=== PATIENT | male | born 1960 | race Caucasian/White ===

== ENCOUNTER → 2017-11-05 08:05 | Outpatient (CLI) | payer BC, SELFPAY | PROVIDERS: PCP Nurse Practitioner; Visit Provider Anesthesiology | DX: M54.12 Radiculopathy, cervical region (principal) ==

== ENCOUNTER 2018-12-10 17:30 | Outpatient (RCR) | payer BC, SELFPAY | END 2018-12-10 17:35 | disposition home or self-care (01) | LOC: PT 17:30 | DX: Z96.642 Presence of left artificial hip joint (principal) | CPT/HCPCS: 97010; 97014; 97110; 97163; G0283 ==

== ENCOUNTER → 2020-10-16 11:34 | Outpatient (CLI) | payer BC, SELFPAY ==
--- NOTE | 2020-10-16 11:39 | XR_ITS ---
PROCEDURE: XR CHEST 2V CLINICAL HISTORY: PNEUMONIA OF LLL DUE TO INFECTIOUS ORGANSIM COMPARISON: No exams were available for comparison FINDINGS: There is normal heart size. No evidence of CHF. Reticular pattern noted in the upper lobes and may be due to developing pulmonary fibrosis. Chest CT may confirm. There is increased density in the retrocardiac region. This may in part be due to hiatal hernia. Consolidation in the lung base posteriorly is also consideration. There is an ill-defined parenchymal opacity in the left upper lobe at 15 mm possibly due to the pulmonary fibrotic process. There are no previous exams available at this institution for comparison. No acute bony findings. Metallic density noted in the left proximal humerus. IMPRESSION: 1. Increased density in the retrocardiac region which could be due to hiatal hernia and ventricular chamber overlap. There may also be and patchy infiltrate in the left lower lobe posteriorly as seen on the lateral view. 2. Reticular pattern in the upper lung zones suggesting pulmonary fibrosis. 3. 15 mm ill-defined parenchymal opacity in the left upper lobe at the 2nd interspace anteriorly 4. Suggest chest CT with contrast for further evaluation. Dictated by: Aakash Meek MD 10/16/2020 11:56 Akaash Meek MD in [place] 10/16/2020 11:56
== END ==
PROVIDERS: PCP Nurse Practitioner Family; Visit Provider Nurse Practitioner Family
DX: J18.9 Pneumonia, unspecified organism (principal)
CPT/HCPCS: 71046

== ENCOUNTER → 2020-11-02 12:50 | Outpatient (CLI) | payer BC, SELFPAY ==
[2020-11-02 13:35] LABS: Blood Urea Nitrogen 9 mg/dl (9-20); Estimated Glomerular Filt Rate 98 ml/min (>60); GFR (African American) 119 ML/MIN (>60)
== END ==
PROVIDERS: Visit Provider Nurse Practitioner Family
DX: R93.89 Abnormal findings on diagnostic imaging of other specified body structures (principal)
CPT/HCPCS: 36415; 82565; 84520

== ENCOUNTER → 2020-11-03 13:21 | Outpatient (CLI) | payer BC, SELFPAY ==
--- NOTE | 2020-11-03 13:26 | CT_ITS ---
PROCEDURE: CT CHEST WO/W CON CLINCAL INDICATION: ABN CXR Follow up pneumonia COMPARISON: CR XR CHEST 2V from 10/16/2020 TECHNIQUE: IV Contrast: 75ml Isovue 370 Axial images obtained with sagittal and coronal reformats. All CT scans at the facility use one or more dose reduction, viz: automated exposure control, ma/kV adjustment per patient size (including targeted exams where dose is matched to indication, i.e. head), or iterative reconstruction technique. FINDINGS: HEART AND MEDIASTINAL STRUCTURES: There are several small mediastinal lymph nodes and small bilateral hilar nodes. Mediastinal nodes measure to 1.8 x 0.9 cm in the precarinal region and bilateral hilar nodes measure 1.6 x 1.2 cm on the right and 1.5 1.6 cm on the left. There is a moderate to large size hiatal hernia containing most of the stomach. No evidence of aortic aneurysm or dissection. No evidence of pulmonary embolus. LUNGS AND PLEURAL SPACES: Pulmonary fibrosis is present with patchy involvement involving both upper lobes. Honeycombing is noted in the lung apices and in the peripheral aspect of both upper lobes. There sparing of the lung bases. There is minimal patchy areas of pulmonary fibrotic changes in the lower lobes. Calcified nodules present in the left lower lobe posteriorly. There is a 4 mm noncalcified nodule in the left lower lobe image 52. 3 mm nodule superior segment left lower lobe image 37 adjacent to a small area of fibrotic change. In the left upper lobe there is a 2 cm focus of what appears represent pulmonary fibrotic change which may account for the radiographic abnormality with an additional 2 cm focus just inferior to this region which may be developing some central cystic changes. There are several other focal areas are focal increased density 1 in the right upper lobe inferiorly image 50 at 13 mm and 1 in the lingula image 52 at 14 mm. These may represent focal areas of fibrotic change. Inflammatory/infectious or neoplastic etiology is not excluded. No pleural effusions. BONY STRUCTURES: No acute bony abnormalities apparent. UPPER ABDOMEN: Hiatal hernia as described above ADDITIONAL FINDINGS: No other significant abnormalities. IMPRESSION: Pulmonary fibrotic changes as described above. There are scattered focal areas of what appears to represent pulmonary fibrotic changes. One of these accounts for the radiographic abnormality. These areas are nonspecific and could be post inflammatory or infectious. Neoplasm is not totally excluded regarding the focal lesions. Therefore, follow-up exam is suggested in 8-12 weeks. Consider pulmonary consult for further evaluation. Moderate to large-sized hiatal hernia. Scattered mildly prominent mediastinal lymph nodes. Dictated by: Aakash eMek MD 11/06/2020 08:07 Aakash Meek MD in [place] 11/06/2020 08:07
== END ==
LOC: RAD 13:21
PROVIDERS: PCP Nurse Practitioner Family; Visit Provider Nurse Practitioner Family
DX: R93.89 Abnormal findings on diagnostic imaging of other specified body structures (principal)
CPT/HCPCS: 71270; Q9967

== ENCOUNTER → 2022-07-02 13:49 | Outpatient (CLI) | payer BC, SELFPAY ==
[2022-07-02 14:48] LABS: Blood Urea Nitrogen 10 mg/dl (9-20); Estimated Glomerular Filt Rate 98 ml/min (>60); GFR (African American) 118 ML/MIN (>60)
== END ==
PROVIDERS: PCP Family Medicine; Visit Provider Nurse Practitioner Family
DX: Z01.812 Encounter for preprocedural laboratory examination (principal)
CPT/HCPCS: 36415; 82565; 84520

== ENCOUNTER → 2022-07-08 13:35 | Outpatient (CLI) | payer BC, SELFPAY ==
--- NOTE | 2022-07-08 13:45 | CT_ITS ---
FINAL REPORT TECHNIQUE: Axial imaging of the chest is obtained after the administration of contrast. 3-D MIP reformatted images were also obtained and reviewed per PE protocol. This study was performed with techniques to keep radiation doses as low as reasonably achievable (ALARA). Individualized dose reduction techniques using automated exposure control or adjustment of mA and/or kV according to the patient's size were employed. CLINICAL HISTORY: ABNORMAL CXR, DYSPNEA ON EXERTION COMPARISON: 11/03/2020 FINDINGS: The pulmonary arteries are well filled. There is no evidence of pulmonary embolus. There is no aortic dissection or intimal flap. Again seen are mildly prominent mediastinal lymph nodes, unchanged from prior exam. Right paratracheal lymph node measures 16 mm, previously measured 17 mm. AP window lymph node measures 20 mm, previously measured 18 mm. Mild hilar lymphadenopath is also stable. There is no pleural or pericardial effusion. Left lower lobe nodule seen on image number 100 is unchanged at 9 mm. Additional, bilateral subpleural areas of ground-glass opacity and fibrosis is unchanged in distribution or appearance. No new pulmonary nodules or areas of consolidation are seen. There is a large hiatal hernia containing the entire stomach. Limited evaluation of the upper abdomen is without acute abnormality. There is no acute osseous abnormality. IMPRESSION: No evidence of pulmonary embolism or aortic dissection. Stable lymphadenopathy, pulmonary nodules and irregular nodular opacities with areas of focal fibrosis. No new pulmonary nodule or areas of consolidation. Large hiatal hernia containing the entire stomach. Reviewed, Interpreted and Dictated by Ruth Esaon MD Transcribed by Catherine Valera Authenticated and [facility]
== END ==
LOC: RAD 13:36
PROVIDERS: PCP Family Medicine; Visit Provider Nurse Practitioner Family
DX: R93.89 Abnormal findings on diagnostic imaging of other specified body structures (principal)
CPT/HCPCS: 71275; Q9967

== ENCOUNTER 2025-01-11 15:10 | Outpatient (CLI) | payer BC, SELFPAY ==
--- OUTSIDE RECORDS SUMMARY | 2025-01-11 15:11 | XMS_ITS | Clinical Summary ---
Author Organization [facility] Address [address] [place] [id number] Phone [email or web address] Care Team Providers Care Sales Engineering Manager Name Role Phone Unavailable Primary Care Provider Unavailabl e Allergies No known active allergies Medications amLODIPine (NORVASC) 10 MG tablet Active tiZANidine (ZANAFLEX) 4 MG tablet Active OxyCONTIN 30 MG 12 hr abuse-deterrent tablet Take 1 tablet every 12 hours by oral route as directed for 30 days. 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 Gender Identity Not on file Sexual Orientation Not on file Last Filed Vital Signs Vital Sign Reading Time Taken Comments Blood Pressure 148/97 07/05/2024 8:47 AM EST Pulse 75 07/05/2024 8:47 AM EST Temperature - - Respiratory Rate 18 07/05/2024 8:47 AM EST Oxygen Saturation 97% 07/05/2024 8:47 AM EST Inhaled Oxygen Concentration - - Weight - - Height - - Body Mass Index - - Plan of Treatment Health Maintenance Due Date Last Done Comments CT Colonography 1959 Colonoscopy 1959 Colorectal Cancer Screening Combo 1959 DNA Cologuard 1959 Dental Cleaning/Exam 1959 FIT or FOBT Test 1959 Sigmoidoscopy 1959 Pneumococcal: 65+ Years (1 o f 2 - PCV) 1978 Tetanus Diphtheria and Pertussis Immunization (1 - Tdap) 07/14/1996 07/13/1996 Zoster Immunization (1 of 2) 2009 Covid-19 Immunization (3 - season) 2024 09/20/2020, 08/30/2020 Influenza Immunization (#1) 2025 02/10/2020 HIB Immunization Aged Out No longer e ligible based on patient's age to complete this topic HPV Immunization Aged Out No longer e ligible based on patient's age to complete this topic Hepatitis A Immunization Aged Out No longer eligible based on patient's age to complete this topic Hepatitis B Immunization Aged Out No longer eligible based on patient's age to complete this topic Polio Immunization Aged Out No longer eligible based on patient's age to complete this topic Insurance OPT OUT NO COPAY NB
--- OUTSIDE RECORDS SUMMARY | 2025-01-11 15:12 | XMS_ITS | Clinical Summary ---
Author Organization [facility] Address [address] [place] [address] Care Team Providers Care Hospital Chief Executive Officer Name Role Phone Mike Amaro MD Primary Care Provider [phone] Allergies No known active allergies Medications oxyCODONE HCl ER (OXYCONTIN) 30 MG tablet extended-releas e 12 hour Take 30 mg by mouth Every 12 (Twelve) Hours. Active losartan (COZAAR) 25 MG tablet Take 25 mg by mouth Daily. Active ibuprofen (ADVIL,MOTRIN) 200 MG tablet Take 2 tablets by mouth Every 6 (Six) Hours As Needed for Mild Pain . Must take an hour after aspirin if needed. 10/08/2018 Active aspirin 81 MG EC tablet Take 1 tablet by mouth Every 12 (Twelve) Hours. For 1 month 10/08/2018 Active HYDROcodone-vincenzo taminophen (NORCO) 7.5-325 MG per tablet Take 1-2 tablets by mouth Every 4-6 Hours for pain. 60 tablet 10/08/2018 1:36 PM EDT 10/08/2018 Active Active Problems Problem Noted Date Diagnosed Date Leukocytosis, mild, likely reactive 10/08/2018 Acute blood loss anemia, mild, asymptomatic 09/11 Acute postoperative pain 10/08/2018 Arthritis of left hip 10/07/2018 Status post total replacement of left hip 2018 HTN (hypertension) 10/07/2018 Tobacco use 10/07/2018 Social History Tobacco Use Types Packs/Day Years Used Date Smoking Tobacco: Every Day Cigarettes Smokeless Tobacco: Never Comments:was 1ppd now 3 cigs /daily Alcohol Use Standard Drinks/Week Comments No 0 (1 standard drink = 0.6 oz pur e alcohol) AUDIT-C Answer Date Recorded Frequency of Alcohol Consumption Never 09/29/2018 Average Number of Drinks Not on file 019 Frequency of Binge Drinking Not on file 09/10 Abuse Screen Answer Date Recorded Unsafe at Home or Work/School Not on file Feels Threatened by Someone? Not on file 04/2023 Does Anyone Keep You from Co ntacting Others or Doint Things Outside the Home? Not on file 02/20/2023 Physical Sign of Abuse Present Not on file 1 Housing Stability Answer Date Recorded Current Living Arrangements Not on file 02/09 Potentially Unsafe Housing Conditions Not on lydia e 02/20/2023 Family and Community Support Answer Bruce e Recorded Help with Day-to-Day Activities Not on file 02/20/2023 Lonely or Isolated Not on file 02/20/2023 Employment Answer Date Recorded Do you want help finding or keeping work or a maria dolores b? Not on file 02/20/2023 Disabilities Answer Date Recorded Concentrating, Remembering, or Making Decisions Difficulty Not on file 02/20/2023 Doing Errands Independently Difficulty Not on fi le 02/20/2023 Education Answer Date Recorded Help with school or training? Not on file Preferred Language Not on file 02/20/2023 Sex and Gender Information Value Date Recorded Sex Assigned at Not on file Legal Sex Male 10:13 AM EDT Gender Identity Not on file Sexual Orientation Not on file Last Filed Vital Signs Vital Sign Reading Time Taken Comments Blood Pressure 123/69 10/08/2018 11:43 AM EDT Pulse 69 10/08/2018 11:43 AM EDT Temperature 36.9 C (98.5 F) 10/08/2018 11:43 AM EDT Respiratory Rate 17 10/08/2018 11:4 3 AM EDT Oxygen Saturation 96% 10/08/2018 11: 43 AM EDT Inhaled Oxygen Concentration - - Weight 95.7 kg (210 lb 15.7 oz) 10/07/2018 7:14 AM EDT Height 188 cm (6' 2 ) 10/07/2018 7:14 AM EDT Body Mass Index 27.09 10/07/2018 7:14 AM EDT Plan of Treatment Health Maintenance Due Date Last Done Comments TDAP/TD VACCINES (1 - Tdap) 1978 COLOGUARD 2004 COLON CANCER SCREENING 5 YEAR SIGMOIDOSCOPY 2004 COLONOSCOPY [address] S[address]ENING [address] COLONOGRAPHY 2004 FECAL OCCULT BLOOD TEST 2004 FIT Testing (1 year) 2004 Pneumococcal Vaccine 50+ (1 of 1 - PCV) 2009 ZOSTER VACCINE (1 of 2) 2009 ANNUAL PHYSICAL 09/29/2018 HEPATITIS C SCREENING 09/29/2018 COVID-19 Vaccine (1 - season) 2024 AAA SCREEN ONCE 2024 INFLUENZA VACCINE 02/09/2025 Medical Devices Implanted Type Area Bat Lathe Operator Device Identifier Shelf Expiration Date Model / Serial / Lot Cap Hip Ve Upchrg - [id number] Implanted:Qty: 1 on 10/07/2018 by Greyson Torres MD at [facility] Implant Left: Hip [employer] CAPHIPVEUPCHRGZI M / / Cap Hip Tm Upchrg - [id number] Implanted:Qty: 1 on 10/07/2018 by Greyson Torres MD at [facility] Implant Left: Hip [employer] CAPHIPTMUPCHRGZI M / / Cap Ceram Hd Hip Upchrg - [id number] Implanted:Qty: 1 on 10/07/2018 by Greyson Torres MD at [facility] Implant Left: Hip [employer] CAPHIPCERAMICUPC HRGZIM / / Liner Acet G7 Neutral E1 Szg 36mm - [id number] Implanted:Qty: 1 on 10/07/2018 by Greyson Torres MD at [facility] Implant Left: Hip [employer] 08/17/2023 [id number] / / [id number] Shll Acet Osseoti G7 4h Szg 58mm - [id number] Implanted:Qty: 1 on 10/07/2018 by Greyson Torres MD at [facility] Implant Left: Hip [employer] 06/11/2028 [id number] / / [id number] Scrw Acet Burton Trilogy S/Tap 6.5x25 - [id number] Implanted:Qty: 1 on 10/07/2018 by Greyson Torres MD at [facility] Implant Left: Hip [employer] 09/08/2028 [id number] / / [id number] Description:HARLEY: [id number] Stem Fem Taperloc Compl Dist Reduc Hi16 - [id number] Implanted:Qty: 1 on 10/07/2018 by Greyson Torres MD at [facility] Implant Left: Hip [employer] 02/13/2027 [id number] / / [id number] Hd Fem Biolox Optn Type1 Tpr 16/18 36 - [id number] Implanted:Qty: 1 on 10/07/2018 by Greyson Torres MD at [facility] Implant Left: Hip [employer] 02/06/2028 [id number] / / [id number] Adapt Hip Biolox Optn Type1 Tpr Min 6 - [id number] Implanted:Qty: 1 on 10/07/2018 by Greyson Torres MD at [facility] Implant Left: Hip [employer] 03/05/2028 [id number] / / [id number] Total Hip Primary High Demand - [id number] Implanted:Qty: 1 on 10/07/2018 by Greyson Torres MD at [facility] Implant Left: Hip [employer] [id number] / / Right Hip Arthroplasty Left Shoulder Pins Insurance PPO Advance Directives * CPR (Attempt to Resuscitate) (Latest Code Status on File) Date Activated Date Inactivated Comments 10/07/2018 11:33 AM 10/08/2018 4:42 PM Question Answer Comments Code Status (Patient has no pulse and is not breathing): CPR (Attempt to Resuscitate) Medical Interventions (Patie nt has pulse or is breathing): Full Level Of Support Discussed With: Patient Care Teams Hospital Chief Executive Officer Relationship Specialty Start Date End Date Mike Amaro MD [address] [place] [address] PCP - General Family Medicine 09/29/18
--- NOTE | 2025-01-11 15:13 | XR_ITS ---
FINAL REPORT CLINICAL HISTORY: Right Hip Pain hip rep 12 yrs ago FINDINGS: RIGHT HIP Three views were obtained. There is no fracture or dislocation. Patient is status post total joint prosthesis which is in anatomic alignment. No soft tissue abnormality is identified. IMPRESSION: Postsurgical changes. Reviewed, Interpreted and Dictated by Maxwell Barrera MD Transcribed by Tanya Valles Authenticated and [facility]
--- NOTE | 2025-01-11 15:13 | XR_ITS ---
FINAL REPORT CLINICAL HISTORY: Left Hip Pain hip rep 17 yrs ago FINDINGS: LEFT HIP Three views were obtained. There is no fracture or dislocation. Patient is status post total joint prosthesis. There are mild hypertrophic changes and heterotopic bone adjacent to the greater trochanter. IMPRESSION: Degenerative and postsurgical changes. Reviewed, Interpreted and Dictated by Maxwell Barrera MD Transcribed by Tanya Valles Authenticated and [facility]
== END 2025-01-11 23:59 | disposition home or self-care (01) ==
LOC: RAD 15:10
PROVIDERS: PCP Family Medicine; Visit Provider Physician Assistant
DX: M16.12 Unilateral primary osteoarthritis, left hip (principal); M25.551 Pain in right hip; Z96.641 Presence of right artificial hip joint; Z96.642 Presence of left artificial hip joint
CPT/HCPCS: 73502